=== PATIENT | male | born 1990 | race African-American/Black ===

== ENCOUNTER 2024-08-15 10:13 | Emergency (ER) | payer BC ==
[2024-08-15 11:08] VITALS: PULSE 84; BMI 48.8
[2024-08-15] MEDS ORDERED: FAMOTIDINE 20 MG/50 ML IVPB 20 MG/50 ML MG IVPB ONE (11:35)
[2024-08-15 11:36] LABS: BASO % 0.6 % (0-2.0); EOS % 0.4 % (0-4.5); HEMATOCRIT 42.3 % (35.4-49); HEMOGLOBIN 14.5 GM/dL (11.7-16.9); LYMPH % 22.5 % (8-40); MCH 26.8 pg (25.7-33.7); MCHC 34.2 g/dl (32.0-35.9); MEAN CELL VOLUME 78.2 fl (80-96); MEAN PLT VOLUME 8.4 fl (7.5-11.1); MONO % 6.9 % (3.8-10.2); NEUT % 69.6 % (42.8-82.8); PLATELET COUNT 303 10^3/uL (134-434); RBC 5.42 M/mm3 (4.00-5.60); RDW 14.3 % (11.9-15.9); WHITE BLOOD COUNT 6.6 K/mm3 (4.0-10.0)
[2024-08-15] MEDS ORDERED: PANTOPRAZOLE SODIUM 40 MG VIAL ONE (11:37)
[2024-08-15] MEDS: FAMOTIDINE 20 MG/50 ML IVPB 20 MG/50 ML MG IVPB ONE (11:47)
[2024-08-15] MEDS: SODIUM CHLORIDE 0.9% 500 ML INFUS.BAG IV ONE ×2 (11:47→13:53)
[2024-08-15] MEDS: PANTOPRAZOLE SODIUM 40 MG VIAL IVPUSH ONE (11:47)
[2024-08-15 11:56] LABS: POTASSIUM 4.3 mmol/L (3.5-5.1)
[2024-08-15 11:59] LABS: ALBUMIN 4.5 g/dl (3.4-5.0); BLOOD UREA NITROGEN 12.1 mg/dL (7-18); CALCIUM 9.6 mg/dL (8.5-10.1)
[2024-08-15 12:03] LABS: BILIRUBIN,TOTAL 0.8 mg/dL (0.2-1); CREATININE 1.2 mg/dL (0.55-1.3); TOT PROT 7.8 g/dl (6.4-8.2)
[2024-08-15 12:08] LABS: LACTIC ACID 3.5 mmol/L (0.4-2.0)
[2024-08-15 13:54] VITALS: BP 158/98; RESP 18; TEMP 98.3
== END 2024-08-15 15:53 | disposition home or self-care (01) ==
LOC: JER 10:13
PROC: 3E033GC Introduction of Other Therapeutic Substance into Peripheral Vein, Percutaneous Approach (ICD-10-PCS; principal; 2024-08-15)
PROC: 3E033GC Introduction of Other Therapeutic Substance into Peripheral Vein, Percutaneous Approach (ICD-10-PCS; 2024-08-15)
DX: R10.10 Upper abdominal pain, unspecified (principal); R00.2 Palpitations; R06.02 Shortness of breath; R63.4 Abnormal weight loss
CPT/HCPCS: 36415; 71046-TC-FY; 74174-TC; 80053; 82550; 82553; 83605; 83690; 84439; 84443; 84484; 85025; 85379; 93005; 93010; 99285-25